=== PATIENT | female | born 1945 | race Caucasian/White ===

== ENCOUNTER → 2018-04-08 | Outpatient (CLI) | payer MEDICARE ==
[~2018-04-08] MED LIST: ASPIR-LOW81 MG PO; [UNRECOGNIZED DRUG - OTHER]
== END ==
LOC: COL.RAD 12:21
DX: M47.814 Spondylosis without myelopathy or radiculopathy, thoracic region (principal); M15.0 Primary generalized (osteo)arthritis; M99.9 Biomechanical lesion, unspecified

== ENCOUNTER → 2021-01-04 | Outpatient (CLI) | payer MEDICARE ==
[~2021-01-04] MED LIST changes: +COZAAR 50MG50 MG/TAB PO; +GLUCOTROL10 MG PO; +NORVASC 5MG5 MG/TAB PO
== END ==
LOC: ZCOL.LAB 16:46
DX: L97.919 Non-pressure chronic ulcer of unspecified part of right lower leg with unspecified severity (principal)

== ENCOUNTER 2021-02-27 07:18 | Day surgery (SDC) | payer MEDICARE ==
[~2021-02-27] VITALS: Ht 160 cm; Wt 76.7 kg
[~2021-02-27 07:18] MED LIST changes: -COZAAR 50MG50 MG/TAB PO; -GLUCOTROL10 MG PO; -NORVASC 5MG5 MG/TAB PO
[2021-02-27] MEDS ORDERED: COZAAR 50MG50 MG/TAB PO (07:45)
[2021-02-27 07:46] VITALS: BP 125/65; PULSE 83; TEMP 97.9
[2021-02-27] MEDS ORDERED: NORVASC 5MG5 MG/TAB PO (07:46)
[2021-02-27] MEDS ORDERED: GLUCOTROL10 MG PO (07:46)
--- NOTE | 2021-02-27 08:51 | NUR ---
Patient's procedure is cancelled due to poor colon prep per patient report. Dr. Bal cancels her procedure. PIV is removed with catheter intact and hemostasis achieved. She changes to her clothing independently and is discharged to home at 0851.
== END 2021-02-27 08:51 | disposition home or self-care (01) ==
LOC: SDCO 07:18
DX: Z53.8 Procedure and treatment not carried out for other reasons (principal); Z20.822 Contact with and (suspected) exposure to COVID-19
CPT/HCPCS: J2704; J7030

== ENCOUNTER → 2021-03-19 | Outpatient (CLI) | payer MEDICARE ==
[~2021-03-19] MED LIST changes: +COZAAR 50MG50 MG/TAB PO; +GLUCOTROL10 MG PO; +NORVASC 5MG5 MG/TAB PO
== END ==
LOC: COL.RAD 03-14 07:30
DX: I87.8 Other specified disorders of veins (principal); H53.8 Other visual disturbances; E11.59 Type 2 diabetes mellitus with other circulatory complications; I15.2 Hypertension secondary to endocrine disorders; I65.03 Occlusion and stenosis of bilateral vertebral arteries; M47.812 Spondylosis without myelopathy or radiculopathy, cervical region
CPT/HCPCS: Q9967